=== PATIENT | male | born 1945 | race Caucasian/White ===

== ENCOUNTER 2020-04-03 13:36 | Emergency (ER) | payer MEDICARE, MEDICAID, SELFPAY ==
[2020-04-03] VITALS (8 sets, daily range): BP systolic 97–128; BP diastolic 21–86; PULSE 58–78; RESP 16–20; TEMP 36.7–37.4; O2SAT 95–98; BMI 23.5
--- NOTE | 2020-04-03 13:39 | CT_ITS ---
PROCEDURE: CT HEAD/BRAIN WO CON CLINICAL INDICATION: fall Head injury with headache/pain, contusion, abrasion or hematoma Altered mental status, altered level of consciousness, confusion, disorientation COMPARISON: No exams were available for comparison TECHNIQUE: Axial images obtained. All CT scans at the facility use one or more dose reduction, viz: automated exposure control, ma/kV adjustment per patient size (including targeted exams where dose is matched to indication, i.e. head), or iterative reconstruction technique. FINDINGS: No midline shift, mass effect, intracranial hemorrhage, hydrocephalus, or extra-axial fluid collection is evident. There is generalized atrophy with hypoattenuation of the periventricular white matter consistent with microangiopathic changes.. Encephalomalacia changes are present in the left temporal lobe. There is diffuse intracranial carotid calcification the calvarium has an unremarkable appearance. No mastoid effusion. No sinus air-fluid level. IMPRESSION: 1. No acute finding. 2. Atrophy with chronic ischemic changes Dictated by: Francis Gastelum MD 04/03/2020 14:11 Electronically signed by Francis Gastelum MD in [place] 04/03/2020 14:11
--- NOTE | 2020-04-03 14:15 | PC.NURSE ---
pt difficult IV stick
--- NOTE | 2020-04-03 14:43 | ECG_ITS ---
APPROVED REPORT Exam: Resting ECG HR:63 bpm ECG Measurements Heart Rate 63 AXES WY 182 P 40 QRSd 114 QRS -26 QT 438 T 3 QTc 448 <Conclusion> Normal sinus rhythm Incomplete right bundle branch block Voltage criteria for left ventricular hypertrophy LAD Abnormal ECG Electronically signed by : Herbert Borrego, 04/05/2020 08:45:18
--- NOTE | 2020-04-03 14:52 | [facility].EDFALL ---
ED Disposition Clinical Impression: Supratherapeutic INR, Subtherapeutic phenytoin level, Urinary retention Shoulder pain Qualifiers: Chronicity: acute Laterality: left Qualified Code(s): M25.512 - Pain in left shoulder Fall Qualifiers: Encounter type: initial encounter Qualified Code(s): W19.XXXA - Unspecified fall, initial encounter Constipation Qualifiers: Constipation type: unspecified constipation type Qualified Code(s): K59.00 - Constipation, unspecified Pneumonia Qualifiers: Pneumonia type: due to unspecified organism Laterality: left Lung location: lower lobe of lung Qualified Code(s): J18.9 - Pneumonia, unspecified organism Disposition: [facility] Condition on Discharge: Good Instructions: DI for Shoulder Pain, DI for Warfarin Therapy, DI for Urinary Retention in Men, DI for Pneumonia -- Adult Additional Instructions: Hold Coumadin for 2 days, then recheck INR and start Coumadin as directed by primary care provider. Hold phenytoin for 1 day, recheck level and start as directed by primary care provider. Continue to monitor urinary retention. Follow-up outpatient with urology within 1 week for further evaluation of this. Prescriptions: Doxycycline Hyclate [Doxycycline 100mg Capsule] 100 mg PO BID 7 Days #14 cap Prescription Printed Referrals: Provider,ReferralMD [Referring] - 04/05/20 - Critical Care Critical Care Time: No Attestation: On 04/03/20, the high probability of a clinically significant, sudden or life threatening deterioration of the following system(s) required my full and direct attention, intervention and personal management. The time I documented below is in addition to time spent performing reported procedures but includes the following listed in this critical care notation. Medical Decision Making - Medical Records Medical records reviewed: Yes: I reviewed the patient's medical records. - Papi Inquiry Pt receiving controlled substance: No Vital Signs: 04/03/20 13:37 04/03/20 14:07 04/03/20 14:47 Temperature 99.4 F Temperature Source Oral Pulse Rate [Left Radial] 66 64 64 Respiratory Rate 16 20 Blood Pressure [Right Arm] 100/21 L 113/66 123/86 Blood Pressure Mean [Right Arm] 47 81 98 Blood Pressure Source [Right Arm] Automatic Cuff Automatic Cuff Blood Pressure Position [Right Arm] Sitting Supine Supine 02 Sat by Pulse Oximetry 98 97 96 Oxygen Delivery Method Room Air Room Air Room Air 04/03/20 15:43 04/03/20 17:06 Temperature Temperature Source Pulse Rate [Left Radial] 58 L 62 Respiratory Rate 20 Blood Pressure [Right Arm] 127/82 118/74 Blood Pressure Mean [Right Arm] 97 88 Blood Pressure Source [Right Arm] Automatic Cuff Automatic Cuff Blood Pressure Position [Right Arm] Supine Supine 02 Sat by Pulse Oximetry 97 95 Oxygen Delivery Method Room Air - Lab Data Lab Results 04/03/20 16:39: WBC 8.1, RBC 3.94 L, Hgb 11.8 L, Hct 35.4 L, MCV 89.9, MCH 30.0, MCHC 33.3, RDW 13.2, Plt Count 331, MPV 6.7 L, Neut % (Auto) 67.3, Lymph % (Auto) 17.5, Kern % (Auto) 6.1, Eos % (Auto) 7.9, Baso % (Auto) 1.1, Neut # (Auto) 5.4, Lymph # (Auto) 1.4, Kern # (Auto) 0.5, Eos # (Auto) 0.6 H, Baso # (Auto) 0.1 04/03/20 16:39: Sodium 130 L, Potassium 4.4, Chloride 93 L, Carbon Dioxide 30, Anion Gap 11.4, BUN 11, Creatinine 0.60 L, Estimated Creat Clear 60, Estimated GFR 131, Est GFR ( Amer) 158, Glucose 111 H, Calcium 9.3, Total Bilirubin 0.5, AST 25, ALT 6 L, Alkaline Phosphatase 225 H, Total Protein 7.5, Albumin 4.2, Globulin 3.3 H, Albumin/Globulin Ratio 1.3, Phenytoin 36.2 H* 04/03/20 16:39: PT 49.5 H, INR 5.15 H 04/03/20 17:20: Urine Color Yellow, Urine Appearance Clear, Urine pH 6.0, Ur Specific [place] 1.010, Urine Protein Negative, Urine Glucose (UA) Negative, Urine Ketones Negative, Urine Blood Negative, Urine Nitrate Negative, Urine Bilirubin Negative, Urine Urobilinogen 0.2, Ur Leukocyte Esterase Negative Result diagrams: 04/03/20 16:39 04/03/20 16:
--- NOTE | 2020-04-03 15:00 | XR_ITS ---
PROCEDURE: XR CHEST PORTABLE CLINICAL HISTORY: fall Posttraumatic pain, fall with injury and pain COMPARISON: No exams were available for comparison FINDINGS: There are no previous exams available for comparison. There is mild prominence of the mediastinum nonspecific. There are low lung volumes with atelectatic changes in the lung bases. There is lucency under the right hemidiaphragm. This could be due to bowel interposition or free air. Upright PA and lateral chest or CT suggested for further evaluation. IMPRESSION: Low lung volumes with bibasilar atelectasis. Possible pneumoperitoneum on the right. Follow-up suggested. Radha was notified in the ER of the above findings Dictated by: Francis Gastelum MD 04/03/2020 15:48 Electronically signed by Francis Gastelum MD in [place] 04/03/2020 15:48
--- NOTE | 2020-04-03 15:00 | CT_ITS ---
PROCEDURE: CT CERVICAL SPINE WO CON CLINICAL INDICATION: fall Posttraumatic pain, neck injury with pain COMPARISON: No exams were available for comparison TECHNIQUE: Axial images obtained with sagittal and coronal reformats. All CT scans at the facility use one or more dose reduction, viz: automated exposure control, ma/kV adjustment per patient size (including targeted exams where dose is matched to indication, i.e. head), or iterative reconstruction technique. Axial spiral CT scanning performed of the cervical spine beginning at the base of the skull and continuing to the upper T-spine. 3-D multiplanar reconstruction with 3-D manipulation of volumetric data set in image rendering was completed by the radiologist and/or technologist with the supervision of the radiologist on independent workstation. FINDINGS: Motion artifact is present obscuring fine detail. There is cervical curvature convex right with multilevel cervical spondylosis. No obvious displaced fracture or dislocation. There is generalized osteopenia. There is exaggerated lordosis C2-C3: Degenerative disc disease with right-sided foraminal narrowing. C3-C4: Degenerate disc disease with bilateral foraminal narrowing and canal stenosis.. C4-C5: Degenerative disc disease with bilateral lateral recess and foraminal narrowing with canal stenosis. C5-C6: Degenerative disc disease with bilateral foraminal narrowing and canal stenosis. C6-C7: Degenerative disc disease IMPRESSION: Multilevel cervical spondylosis with scoliosis and exaggerated lordosis with lateral recess and foraminal narrowing and canal stenosis. No definite acute fracture Dictated by: Francis Gastelum MD 04/03/2020 15:44 Electronically signed by Francis Gastelum MD in [place] 04/03/2020 15:44
--- NOTE | 2020-04-03 15:01 | XR_ITS ---
PROCEDURE: XR SHOULDER LT MIN 2V CLINICAL INDICATION: fall Posttraumatic pain COMPARISON: No exams were available for comparison FINDINGS: No fracture, dislocation, lytic change, or blastic change evident. No significant degenerative change IMPRESSION: No acute findings. Dictated by: Francis Gastelum MD 04/03/2020 15:50 Electronically signed by Francis Gastelum MD in [place] 04/03/2020 15:50
--- NOTE | 2020-04-03 15:40 | PC.NURSE ---
contacted live in housekeeper nanny to attempt IV via ultrasound r/t unable to obtain IV
--- NOTE | 2020-04-03 15:51 | CT_ITS ---
PROCEDURE: CT ABDOMEN PELVIS WO CON CLINICAL INDICATION: free air? Abdominal pain and distension, possible pneumoperitoneum noted on upright chest x-ray COMPARISON: No exams were available for comparison TECHNIQUE: Axial images obtained with sagittal and coronal reformats. All CT scans at the facility use one or more dose reduction, viz: automated exposure control, ma/kV adjustment per patient size (including targeted exams where dose is matched to indication, i.e. head), or iterative reconstruction technique. FINDINGS: LOWER THORAX: Please see chest CT report ABDOMEN & PELVIS: There is elevation of the left hemidiaphragm. No evidence of pneumothorax. There is some bowel interposition on the right and some peritoneal fat noted between the diaphragm and the liver accounting for the radiographic appearance. There is a moderate-sized hiatal hernia. 1 cm hypodensity is present in the right hepatic lobe. The gallbladder, spleen, adrenal glands and pancreas have an unremarkable appearance. There are bilateral renal cysts the largest in the lower pole of the left kidney at 6 cm. There is severe distention of the urinary bladder which measures 21 cm cephalad caudad and 10 cm transverse. There is mild right hydronephrosis and hydroureter. The bladder is slightly situated toward the right. The superior aspect urinary bladder extends 5.7 cm superior to the level of the umbilicus. There is moderate thickening of the sigmoid colon and rectum suggesting colitis/proctitis. No evidence of appendicitis or diverticulitis. There is also some mild thickening of the ascending colon. There is mild lumbar curvature convex left. Artifact is present from right femoral gamma nail and intramedullary macario with old right hip fracture. There is enlarged prostate. IMPRESSION: 1. No evidence of pneumoperitoneum. 2. Marked distention of the urinary bladder with right hydronephrosis and hydroureter 3. Thickening of the rectosigmoid colon consistent with colitis/proctitis also with some thickening of the ascending colon Dictated by: Francis Gastelum MD 04/05/2020 08:34 Electronically signed by Francis Gastelum MD in [place] 04/05/2020 08:34
--- NOTE | 2020-04-03 16:00 | PC.NURSE ---
IV's attempted several times without success.
--- NOTE | 2020-04-03 16:05 | CT_ITS ---
PROCEDURE: CT CHEST WO CON CLINICAL INDICATION: SOA Shortness of air, atelectasis, possible covid pneumonia COMPARISON: No exams were available for comparison TECHNIQUE: Axial images obtained with sagittal and coronal reformats. All CT scans at the facility use one or more dose reduction, viz: automated exposure control, ma/kV adjustment per patient size (including targeted exams where dose is matched to indication, i.e. head), or iterative reconstruction technique. FINDINGS: HEART AND MEDIASTINAL STRUCTURES: Vascular ectasia with atherosclerotic calcification of the aorta. Coronary artery calcifications are present. Aortic valve calcification also present. There is generalized motion artifact. LUNGS AND PLEURAL SPACES: Scattered areas of atelectasis with low lung volumes. Motion artifact does obscure fine detail. 3 mm noncalcified nodule is present in the right upper lobe 4 mm noncalcified nodule left apex. The BONY STRUCTURES: Age indeterminate compression deformity of T6 with loss of height centrally of greater than 50 percent. No significant retropulsion. UPPER ABDOMEN: Please see abdomen report ADDITIONAL FINDINGS: No other significant abnormalities. IMPRESSION: Scattered atelectatic changes. Low lung volumes with scattered areas of atelectasis and at least 2 noncalcified pulmonary nodules. Consider six-month follow-up to confirm stability Age indeterminate compression deformity of T6. MRI may provide further evaluation Dictated by: Francis Gastelum MD 04/05/2020 08:29 Electronically signed by Francis Gastelum MD in [place] 04/05/2020 08:29
--- NOTE | 2020-04-03 16:15 | PC.NURSE ---
Pt returned from rad
--- NOTE | 2020-04-03 16:23 | PC.NURSE ---
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
--- NOTE | 2020-04-03 16:55 | PC.NURSE ---
iv placed rt upper arm per fela lovett
[2020-04-03 17:00] LABS: Chloride 93 mmol/L (98-107); Potassium 4.4 mmoL/L (3.5-5.1); Sodium 130 mmol/L (136-145)
[2020-04-03 17:03] LABS: Alanine Aminotransferase 6 U/L (12-78); Albumin Level 4.2 g/dl (3.5-5.0); Albumin/Globulin Ratio 1.3 (1.1-1.8); Alkaline Phosphatase 225 U/L (38-126); Anion Gap 11.4 mEq/L (5-15); Aspartate Amino Transferase 25 U/L (17-59); Basophils # 0.1 K/mm3 (0-0.2); Basophils % 1.1 % (0.1-2.0); Bilirubin,Total 0.5 mg/dl (0.2-1.3); Blood Urea Nitrogen 11 mg/dl (9-20); Calcium 9.3 mg/dl (8.4-10.2); Carbon Dioxide 30 mmol/L (22.0-30.0); Creatinine Clearance Estimated 60 mL/min (50-200); Eosinophils # 0.6 K/mm3 (0.0-0.4); Eosinophils % 7.9 % (0.1-12.0); Estimated Glomerular Filt Rate 131 ml/min (>60); GFR (African American) 158 ML/MIN (>60); Globulin 3.3 g/dL (1.3-3.2); Glucose 111 mg/dl (74-100); Hematocrit 35.4 % (42.0-52.0); Hemoglobin 11.8 g/dL (14.1-18.0); Lymphocytes # 1.4 K/mm3 (0.7-4.5); Lymphocytes % 17.5 % (10-50); Mean Corpuscular HGB Conc 33.3 g/dL (31.8-35.4); Mean Corpuscular Volume 89.9 fl (80-94); Mean Platelet Volume 6.7 fl (7.4-10.4); Monocytes # 0.5 K/mm3 (0.1-1.0); Monocytes % 6.1 % (1.7-9.3); Neutrophils # 5.4 K/mm3 (1.8-7.8); Neutrophils % 67.3 % (37.0-80.0); Platelet Count 331 K/mm3 (142-424); Red Blood Count 3.94 M/mm3 (4.60-6.20); Red Cell Distribution Width 13.2 % (11.5-17.5); Total Protein,Serum 7.5 g/dl (6.3-8.2); White Blood Count 8.1 K/mm3 (4.8-10.8)
--- NOTE | 2020-04-03 17:07 | PC.NURSE ---
Called [facility] and spoke with Jaylon regarding the delay on CT report. he stated he would call Dr Gastelum and would call us back.
[2020-04-03 17:08] LABS: INR 5.15 (0.9-1.1); Prothrombin Time 49.5 seconds (9.4-11.8)
[2020-04-03 17:17] LABS: Adenovirus,PCR Not Detected (NotDetected); Bordetella Pertussis Not Detected (NotDetected); Chlamydophila Pneumoniae, PCR Not Detected (NotDetected); Coronavirus 19, PCR Not Detected (NotDetected); Coronavirus 229E Not Detected (NotDetected); Coronavirus NL63 Not Detected (NotDetected); Coronavirus OC43 Not Detected (NotDetected); Coronovirus HKU1,PCR Not Detected (NotDetected); Human Metapneumovirus Not Detected (NotDetected); Influenza A, PCR Not Detected (NotDetected); Influenza AH1, 2009 Not Detected (NotDetected); Influenza AH1, PCR Not Detected (NotDetected); Influenza AH3,PCR Not Detected (NotDetected); Influenza B, PCR Not Detected (NotDetected); Mycoplasma Pneumoniae, PCR Not Detected (NotDected); Parainfluenza 1, PCR Not Detected (NotDetected); Parainfluenza 2, PCR Not Detected (NotDetected); Parainfluenza 3, PCR Not Detected (NotDetected); Parainfluenza 4, PCR Not Detected (NotDetected); Respiratory Syncytial Virus Not Detected (NotDetected); Rhinovirus/Enterovirus Not Detected (NotDetected)
[2020-04-03 17:22] LABS: Phenytoin (Dilantin) 36.2 ug/ml (10-20)
[2020-04-03 17:27] LABS: Microscopic, Urine URINE MICROSCOPIC (MICROSCOPIC)
[2020-04-03 17:28] LABS: Appearance,Urine CLEAR (Clear); Bilirubin,Urine Negative (Negative); Blood, Urine Negative (Negative); Color,Urine YELLOW (Yellow); Glucose,Urine (UA) Negative (Negative); Ketones,Urine Negative (Negative); Leukocyte Esterase,Urine Negative (Negative); Nitrate,Urine Negative (Negative); Protein,Urine Negative (Negative); Urobilinogen,Urine 0.2 EU/dl (0.2)
[2020-04-03 17:41] LABS: RBC,Urine Occasional #/hpf (0-3); Renal Epithelial Cells,Urine Occasional #/lpf (0); Squamous Epithelial Cell,Urine Occasional #/hpf (0-5)
--- NOTE | 2020-04-03 20:12 | PC.NURSE ---
received call from [facility] ems concerning pt update. advised pt would be discharged. discussed transfer with vanessa price, who stated that pt could go on with [facility] if they were available due to trucks being tied up at this time with a county call.
--- NOTE | 2020-04-03 20:15 | PC.NURSE ---
called [facility] with ems permission for pt transport [facility]
--- NOTE | 2020-04-03 20:38 | PC.NURSE ---
nurse given report at [facility]
--- NOTE | 2020-04-03 20:43 | PC.NURSE ---
[facility] here to get pt
[2020-04-07 09:59] LABS: Levetiracetam (Keppra) 36.4 ug/mL (10.0-40.0)
== END 2020-04-03 20:58 ==
PROVIDERS: Emergency Provider Emergency Medicine; PCP Family Medicine
DX: M25.512 Pain in left shoulder (principal); W01.0XXA Fall on same level from slipping, tripping and stumbling without subsequent striking against object, initial encounter; Y92.129 Unspecified place in nursing home as the place of occurrence of the external cause; J18.1 Lobar pneumonia, unspecified organism; K59.00 Constipation, unspecified; K21.9 Gastro-esophageal reflux disease without esophagitis; J44.9 Chronic obstructive pulmonary disease, unspecified; Z86.73 Personal history of transient ischemic attack (TIA), and cerebral infarction without residual deficits; Z79.899 Other long term (current) drug therapy
CPT/HCPCS: 70450; 71045; 71250; 72125; 73030; 74176; 80053; 80177; 80185; 81001; 85025; 85610; 87581; 87633; 87798; 93005; 96365; 96367; 99285; J0692; J3370